=== PATIENT | female | born 1930 | race Caucasian/White ===

== ENCOUNTER → 2016-12-17 | Outpatient (CLI) | payer MEDICARE, OTHER | END | disposition home or self-care (01) | LOC: PCVCIMAG 13:07 | PROVIDERS: ATTEND Internal Medicine Cardiovascular Disease | DX: I87.329 Chronic venous hypertension (idiopathic) with inflammation of unspecified lower extremity (principal); I87.2 Venous insufficiency (chronic) (peripheral); J44.9 Chronic obstructive pulmonary disease, unspecified; M35.3 Polymyalgia rheumatica; I73.00 Raynaud's syndrome without gangrene; R42 Dizziness and giddiness | CPT/HCPCS: 93970; G0463 ==

== ENCOUNTER → 2016-12-30 | Outpatient (CLI) | payer MEDICARE, OTHER ==
[~2016-12-30] MED LIST: DIAZEPAM 10 MG TABLET ONE; FENTANYL PF 100 MCG/2 ML VIAL. ONE; IOHEXOL 300 MG/ML 100ML VIAL. ONE; IV NORMAL SALINE 1000ML BAG 1,000 ML ONE; LIDOCAINE 1% Multi-Dose 20 ML VIAL. ONE; MIDAZOLAM HCL 2 MG/2 ML VIAL. ONE
== END | disposition home or self-care (01) ==
LOC: PCVCINTER 10:55
PROVIDERS: ATTEND Nuclear Medicine Nuclear Cardiology
DX: I87.2 Venous insufficiency (chronic) (peripheral) (principal); I87.323 Chronic venous hypertension (idiopathic) with inflammation of bilateral lower extremity; I87.1 Compression of vein; M79.89 Other specified soft tissue disorders; J44.9 Chronic obstructive pulmonary disease, unspecified; M35.3 Polymyalgia rheumatica; I73.00 Raynaud's syndrome without gangrene; R42 Dizziness and giddiness
CPT/HCPCS: 36012; 37252; 37253; 75822; 75825; 76937; C1751; C1753; C1769; C1894; J2250; J3010; J7030; Q9967

== ENCOUNTER → 2017-01-05 | Outpatient (CLI) | payer MEDICARE, OTHER ==
[~2017-01-05] MED LIST changes: -DIAZEPAM 10 MG TABLET ONE; +DIAZEPAM 5 MG TABLET ONE; +DOXYCYCLINE HYCLATE 100 MG TABLET ONE; -FENTANYL PF 100 MCG/2 ML VIAL. ONE; -IOHEXOL 300 MG/ML 100ML VIAL. ONE; -LIDOCAINE 1% Multi-Dose 20 ML VIAL. ONE; +LIDOCAINE 1%/EPI 1:100,000 20 ML VIAL. ONE; -MIDAZOLAM HCL 2 MG/2 ML VIAL. ONE; +SODIUM BICARBONATE 50 MEQ/50 ML VIAL. ONE
== END | disposition home or self-care (01) ==
LOC: PCVCINTER 11:08
PROVIDERS: ATTEND Nuclear Medicine Nuclear Cardiology
DX: I87.2 Venous insufficiency (chronic) (peripheral) (principal); I87.321 Chronic venous hypertension (idiopathic) with inflammation of right lower extremity; M79.89 Other specified soft tissue disorders; J44.9 Chronic obstructive pulmonary disease, unspecified; M35.3 Polymyalgia rheumatica; I73.00 Raynaud's syndrome without gangrene; R42 Dizziness and giddiness
CPT/HCPCS: 36478; C1751; C1769; C1894; J3490; J7030

== ENCOUNTER → 2017-01-07 | Outpatient (CLI) | payer MEDICARE, OTHER ==
[~2017-01-07] MED LIST changes: +ARNICA TOPICAL GEL 1.5OZ TUBE. TP ONE; +DIAZEPAM 10 MG TABLET ONE; -DIAZEPAM 5 MG TABLET ONE; -DOXYCYCLINE HYCLATE 100 MG TABLET ONE; +LIDOCAINE 1% Multi-Dose 20 ML VIAL. ONE
== END | disposition home or self-care (01) ==
LOC: PCVCINTER 09:36
PROVIDERS: ATTEND Nuclear Medicine Nuclear Cardiology
DX: I87.2 Venous insufficiency (chronic) (peripheral) (principal); I87.322 Chronic venous hypertension (idiopathic) with inflammation of left lower extremity; M79.89 Other specified soft tissue disorders
CPT/HCPCS: 36478; C1751; C1769; C1894; J3490; J7030

== ENCOUNTER → 2017-04-09 | Outpatient (CLI) | payer MEDICARE, OTHER | END | disposition home or self-care (01) | LOC: PCVCIMAG 14:23 | PROVIDERS: ATTEND Nuclear Medicine Nuclear Cardiology | DX: I87.2 Venous insufficiency (chronic) (peripheral) (principal); I10 Essential (primary) hypertension; I73.00 Raynaud's syndrome without gangrene; J44.9 Chronic obstructive pulmonary disease, unspecified; M35.3 Polymyalgia rheumatica | CPT/HCPCS: 93970; G0463 ==

== ENCOUNTER → 2017-08-19 | Outpatient (CLI) | payer MEDICARE, OTHER | END | disposition home or self-care (01) | LOC: PCVCCLINIC 13:46 | PROVIDERS: ATTEND Internal Medicine Cardiovascular Disease | DX: I10 Essential (primary) hypertension (principal); I73.00 Raynaud's syndrome without gangrene; I87.2 Venous insufficiency (chronic) (peripheral); M35.3 Polymyalgia rheumatica; Z85.3 Personal history of malignant neoplasm of breast; Z90.12 Acquired absence of left breast and nipple; Z87.891 Personal history of nicotine dependence; Z88.0 Allergy status to penicillin; Z88.2 Allergy status to sulfonamides; Z88.8 Allergy status to other drugs, medicaments and biological substances | CPT/HCPCS: 80061; 93005; G0463 ==

== ENCOUNTER → 2018-03-24 | Outpatient (CLI) | payer MEDICARE, OTHER | END | disposition home or self-care (01) | LOC: PCVCCLINIC 14:35 | DX: I10 Essential (primary) hypertension (principal); M35.3 Polymyalgia rheumatica; I73.00 Raynaud's syndrome without gangrene; I87.2 Venous insufficiency (chronic) (peripheral); M19.90 Unspecified osteoarthritis, unspecified site; R94.31 Abnormal electrocardiogram [ECG] [EKG] | CPT/HCPCS: 80061; 93005; G0463 ==